=== PATIENT | female | born 1950 | race Caucasian/White ===

== ENCOUNTER → 2019-05-24 13:33 | Outpatient (CLI) | payer MEDICARE, MEDICAID, SELFPAY ==
[2019-05-11 14:29] VITALS: BMI 41.0
--- NOTE | 2019-05-24 13:36 | ECHOCS_ITS ---
Reason For Study: Dyspnea/SOB Procedure This was a 2D Doppler, Color Flow transthoracic echocardiogram. The study was technically difficult. Contrast injection was performed. Exam performed in department. Left Ventricle Normal LV size. Left ventricular systolic function is normal. The estimated ejection fraction is 65 %. Stage 1 diastolic dysfunction. No regional wall motion abnormalities noted. Right Ventricle Normal RV size. Normal systolic function. Atria Normal left atrium. Normal right atrium. Intact atrial septum. Mitral Valve Mitral valve not well visualized. Tricuspid Valve The tricuspid valve is not well visualized. Aortic Valve Trisinus/trileaflet aortic valve. Mild focal aortic valve calcification. Pulmonic Valve The pulmonic valve is not well visualized. Great Vessels Normal aortic root. The pulmonary artery is normal size. Normal inferior vena cava. Pericardium/Pleural No pericardial effusion. Medication 22 gauge I.V. with prn adaptor inserted into right arm. Diluted definity 2ml given slow IV push to enhance endocardial definition. Performed a rapid injection of agitated mix of 9 cc saline and 1cc air to assess for atrial septal defect. MMode/2D Measurements & Calculations LVIDd: 3.8 cm IVSd: 1.1 cm LVOT diam: 2.0 cm LVIDs: 2.3 cm LVPWd: 1.2 cm FS: 40.3 % LVOT area: 3.3 cm2 Ao root diam: 3.1 cm LAV(MOD-sp4): 56.1 ml LA A4 area: 19.5 cm2 LA dimension: 4.2 cm RA A4 area: 9.8 cm2 Time Measurements MV dec time: 0.20 sec Doppler Measurements & Calculations MV E max tanner: 80.8 cm/sec Lat Peak E' Tanner: 10.6 cm/sec Med Peak E' Tanner: 4.6 cm/sec MV A max tanner: 116.6 cm/sec E/E' lat: 7.6 E/E' med: 17.6 MV E/A: 0.69 MV V2 max: 121.5 cm/sec MV P1/2t max tanner: 87.6 cm/sec Ao V2 max: 258.3 cm/sec MV max P.9 mmHg MV P1/2t: 81.4 msec Ao max P.8 mmHg MV V2 mean: 57.7 cm/sec MV dec slope: 315.0 cm/sec2 Ao V2 mean: 149.2 cm/sec MV mean P.6 mmHg MVA(P1/2t): 2.7 cm2 Ao mean P.3 mmHg MV V2 VTI: 35.3 cm Ao V2 VTI: 47.6 cm MVA(VTI): 2.6 cm2 TANYA(I,D): 1.9 cm2 TANYA(V,D): 1.7 cm2 LV V1 max: 135.4 cm/sec SV(LVOT): 90.5 ml PA V2 max: 129.0 cm/sec LV V1 max P.3 mmHg LV V1 mean P.0 mmHg LV V1 mean: 78.8 cm/sec LV V1 VTI: 27.6 cm TR max tanner: 290.1 cm/sec TR max P.7 mmHg Interpretation Summary Normal LV size. Left ventricular systolic function is normal. The estimated ejection fraction is 65 %. Stage 1 diastolic dysfunction. Contrast injection was performed. Ordering Physician: Leon Roman Referring Physician: Leon Roman Performed By: Jose Butler RCS
== END ==
PROVIDERS: Referring Provider Internal Medicine Cardiovascular Disease; Visit Provider Internal Medicine Cardiovascular Disease
DX: R06.09 Other forms of dyspnea (principal); R06.02 Shortness of breath
CPT/HCPCS: 93306; Q9957; A4216; C8929

== ENCOUNTER 2019-06-07 06:39 | Outpatient (RCR) | payer MEDICARE, MEDICAID, SELFPAY ==
[2019-05-11 14:29] VITALS: BMI 41.0
--- NOTE | 2019-06-07 10:11 | PR.ITP_ITS ---
General Information - General Information Admitting Diagnosis: ASTHMA W/COPD Gold Classification:: GOLD 2: Moderate - PFT FEV1:: 1.16 - 63% FVC:: 1.67 - 71% FEV1/FVC%:: 70 - Education/Goals Barriers to Learning: Vision Impairment Individual Counseling: Initial Assessment: Dyspnea control techniques at rest, activity, and ADLs, Inhaled and respiratory medications, Exacerbation prevention & management, ADL management and pacing, Nutrition & weight management, Smoking cessation, Home exercise plan & guidelines, Advanced directives Patient Goals: Breathe better: Initial Assessment, Increase endurance/stamina: Initial Assessment, Control panic/anxiety: Initial Assessment, Improve weight: Initial Assessment Exercise - Initial Assessment - Visit Date of Eval: 06/07/19 - Problem/Goals Problems: Deconditioning - Physician Prescribed Exercise Modalities: Treadmill, NuStep, SciFit Frequency (days/week): 3 Duration (Minutes):: 30-45 Intensity: 60-80% of age predicted maximum heart rate reserve METs - Progression: 0.5-1.0 MET, RPE 11-14 WEEK: 3.0 Target Heart Rate:: 84-110 - Plan Plan and Plan to Review:: Benefits of exercise, Core components of exercise, How to measure dyspnea level, How to monitor dyspnea level, Exercise intensity, Exercise safety guideline, Home exercise guidelines, Tera: 3-4/-13 Disease Management - Initial - Problems/Goals-Hypoxemia Hypoxemia Problems:: No home O2 Hypoxemia Goals:: Hypoxemia managed - Problems/Goals-Medications Medication Goals: Adherence to prescribed medications, Correct technique/timing & care of MDI, DPI, nebulizer, and spacer. - Problems/Goals-Bronchial Hygiene Bronchial Hygiene Problems:: Ineffective secretion clearance, Respiratory infection Prevention/Management Bronchial Hygiene Goals:: Pt demonstrates effective cough, effective secretion clearance., Pt describes signs and symptoms of infection. - Initial Assessment SpO2:: 95 FiO2:: 21 Does pt report taking home meds as prescribed?: Yes Medications: Yes MDI, No Spacer Patient Reports:: No cough - Plans Hypoxemia Plan:: Monitor SpO2 rest & with exercise, Train appropriate O2 use with exercise, Train O2 safety & systems Reviewed prescribed medications:: Purpose, Schedule, Side effects, Importance of compliance Instruct correct technique/timing & care:: MDI, DPI, Nebulizer, Return demo use of inhaler Bronchial Hygiene Plan: Controlled cough, Vibratory PEP device, Hydration, Hand hygiene, When to call MD, Signs/symptoms to report:, Influenza/Pneumovax vaccines Psychosocial - Initial Assess - Problems/Goals Problems: Depression - PTSD and PANIC DISORDER [facility], Panic, Impaired Q.O.L. Psychosocial Goals: Improved psychosocial coping skills., Verbalizes coping strategies., Adequate treatment of depression., Improved Q.O.L. - Psychosocial Test Depression:: Impaired QOL Tests Completed: SF - 36 survey completed, Mood Scale Test Referred to MD for counseling:: Yes - Plan Reviewed screening results: No Instructions given regarding:: Benefits of exercise, Relaxation techniques, Training in coping strategies Stress management: On meds currently, Receiving counseling Tobacco - Initial Assessment - Program Goals Tobacco Program Goals: Complete smoking cessation. Attend education classes. Improve Knowledge Test score - Stage of Change Stages of Change:: Action - Learning Barriers Learning Barriers: Vision, Ready to Learn - Family Support Do you have family support?: Yes - Tobacco Use Tobacco Use: Cigarettes - RECENTLY QUIT 06/29/2018 40 PACK YR HX. How long ago did you quit using tobacco products?: Greater than or equal to 6 months ago How many cigarettes do you smoke per day?: 0 Years Smokin Do you use smokeless tobacco?: No - Intervention Smoking Cessation Referral:: Yes - SUPPORT FOR ABSTAINING ANC CONTINUED SMOKING CESSATION Individual Education/Counseling:: No Education Schedule Given:: No - Education Gave Education Materials For:: Pulmonary Disease, Risk Factors, Breathing Techniques, Medical Compliance, Pulmonary A&P, Exacerbation Signs & Symptoms, Stress & Relaxation Nutrition/Wt Mgmt - Initial - Problems/Goals Problems: Overweight Goals: Wt Loss 1-2 lbs per week - Weight Management Knowledge Deficit Management of:: Overweight Admit Height:: 4 ft 11 in Admit Weight:: 203 lb Admit BMI:: 41.0 - Diabetes Diabetes:: No Insulin: No Do you monitor your blood sugar at home?: No - Intervention Referral to dietitian:: Yes - WHY WEIGHT and MEDICAL NUTRITION THERAPY Referral to Diabetic Clinic:: No Will attend diet classes:: Yes - Plan Nutrition Plan: Yes Review BMI or WC & identify target wt & strategies for wt control, Yes Nutrition education class:, Yes Weight control education class:, Yes Education re: Need for ongoing weight monitoring Patient Health Questionnaire Initial Assessment 1. Little interest or pleasure in doing things: Several days 2. Feeling down, depressed, or hopeless: Several days 3. Trouble falling or staying asleep, or sleeping too much: More than half the days 4. Feeling tired or having little energy: More than half the days 5. Poor appetite or overeating: Not at all 6. Feeling bad about yourself -- or that you are a failure or have let yourself or your family down: Several days 7. Trouble concentrating on things, such as reading the newspaper or watching television: Not at all 8. Moving or speaking so slowly that other people could have noticed. Or the opposite - being so fidgety or restless that you have been moving around a lot more than usual: More than half the days 9. Thoughts that you would be better off , or of hurting yourself in some way: Not at all Total Score: 9 COPD Knowledge Test Initial COPD is a lung disease that:: Makes it hard to breathe & gets worse over time In the [place] the term COPD describes 2 main lung conditions:: Emphysema & chronic bronchitis The most common lung irritant that causes COPD is:: Cigarette smoke Common signs and symptoms of COPD include:: An ongoing cough/cough that produces a large amount of mucus, & SOB If you have COPD, what steps can you take?: Quit smoking & avoid secondhand smoke Swelling of the ankles is common in COPD:: False Fatigue [tiredness] is common in COPD:: True Wheezing is common in COPD:: True Crushing chest pain is common in COPD:: False Rapid weight loss is common in COPD:: False Breathlessness is a normal response to exercise: True Exercise should be avoided if it makes you short of breath: True All bronchodilators act within 10 minutes: True A spacer device increases the medication to the lungs: True Annual flu vaccine is recommended for pts w/lung disease: True COPD Knowledge Test Total Score:: 12 COPD Assessment Test [CAT] - Questions Never cough = 0, Cough all the time = 5: 2 No phlegm = 0, Chest full of phlegm = 5: 2 No chest tightness = 0, Chest very tight = 5: 2 No breathless w/exertion = 0, Very breathless w/exertion = 5: 4 No limitations w/activity = 0, Very limited w/activity = 5: 1 Confident leaving home = 0, Not at all confident = 5: 0 Sleep soundly = 0, Don't sleep soundly = 5: 4 Lots of energy = 0, No energy at all = 5: 5 Total CAT score:: 20 Self-Efficacy Initial Assessment We would like to know how confident you are in doing certain activities. Please select your confidence level for:: Select your confidence level for the following using the scale 1-10 where 1 is not at all confident and 10 is totally confident. Your score is the average of all 6 responses. Fatigue: How confident are you that you can keep the fatigue caused by your disease from interfering with the things you want to do? Select Number: 2 Physical Discomfort or Pain: How confident are you that you can keep the physical discomfort or pain of your disease from interfering with the things you want to do? Select Number: 2 Emotional Distress: How confident are you that you can keep the emotional distress caused by your disease from interfering with the things you want to do? Select Number: 2 Other Symptoms or Health Problems: How confident are you that you can keep other symptoms or health problems from interfering with the things you want to do? Select Number: 1 Different Tasks and Activities: How confident are you that you can do the d ifferent tasks and activities needed to manage your health condition so as to reduce your need to see a doctor? Select Number: 2 Medication: How confident are you that you can do things other than just taking medication to reduce how much your illness affects your everyday life? Select Number: 2 Total Score:: 1 Nutrition Survey - Nutrition Survey Instructions Scoring Instructions: Scoring is as follows: Yes = 1 points. No = 0 point. Patient score that is >/=12 is considered to be at potential nutritional risk and could benefit from a referral to a registered dietitian. - Nutrition Survey Initial Have you lost >10 lbs over the past 2 months without trying?: No Are you following a special diet at home for diabetes, low fat, or low salt?: No Are you interested in meeting with a dietitian for help understanding your diet?: Yes Do you eat less than 3 meals a day?: Yes Do you eat fatty meats (, sausage, ribs, etc), fried foods, desserts, large amounts of salad dressings, margarine, butter, or cheese most days?: No Do you have food allergies? [Enter types in comment field]: No Do you eat in restaurants more than 3 times a week?: No Do you season food with salt, seasoning salt, or garlic salt?: No Do you used canned, boxed, frozen meals, or soups, seasoning packets?: Yes Total Score:: 3
--- NOTE | 2019-06-07 10:11 | PCM.PR.HP ---
History of Present Illness Arrival date:: 06/07/19 Arrival time:: 10:11 Date of Referral:: 05/23/19 Date of Evaluation: 06/07/19 Referring Physician: DR. FIFI BOBBY Primary Diagnosis: ASTHMA w/COPD History of Present Illness: Pt is a very pleasent 69 yr old female of Dr. Bobby who is presenting to pulmonary rehab for her recent breathing problems. Due to her shortness of breath and asthma she has decreased functional ability, decreased ADLs, and experienced decrease in exercise tolerance. mMRC Breathless Scale: When is the patient short of breath? Y/N Grade: Description of Breathlessness: 0 I only get breathless with strenuous exercise. 1 I get short of breath when hurrying on level ground or walking up a slight hill. 2 On level ground, I walk slower than people of the same age because of breathless, or have to stop for breath when walking at my own pace. 3 I stop for breath after walking 100 yards or after a few minutes on level ground. 4 I am too breathless to leave the house or I am breathless when dressing. Respiratory Problems: Yes: Wheezing, Able to Speak in Full Sentences, Panic, Dyspnea at Rest, Dyspnea with Activity, Cough with Secretions Home Medications: Home Medications Citalopram Hydrobromide [Citalopram HBr] 40 mg PO DAILY 05/30/13 Metoprolol Tartrate 50 mg PO BID 05/30/13 Nitroglycerin (INPATIENT USE) [Nitrostat] 0.4 mg SUBLINGUAL Q5M PRN 05/30/13 Trazodone HCl [Oleptro ER] 150 mg PO DAILY 05/30/13 alendronate 70 mg tablet 70 mg PO QWEEK 05/10/19 amlodipine 10 mg tablet 10 mg PO DAILY 05/10/19 aspirin 81 mg tablet,delayed release 81 mg PO DAILY 05/10/19 cetirizine 10 mg capsule PO 05/10/19 cyanocobalamin (vitamin B-12) 1,000 mcg/mL injection solution 100 mcg IM QMONTH 05/10/19 escitalopram oxalate 10 mg tablet 10 mg PO DAILY 05/10/19 fluticasone propionate 50 mcg/actuation nasal spray,suspension 1 spray INTRANASAL DAILY 05/10/19 hydralazine 50 mg tablet 50 mg PO QHS tab 05/10/19 levothyroxine 88 mcg capsule 88 mcg PO DAILY 05/10/19 montelukast 10 mg tablet 10 mg PO QHS 05/10/19 tiotropium 2.5 mcg-olodaterol 2.5 mcg/actuation mist for inhalation 2 puff INHALATION DAILY 05/10/19 Allergies/Adverse Reactions: Allergies codeine Adverse Reaction (Verified 05/11/19 12:28) Upset Stomach lisinopril Adverse Reaction (Verified 05/11/19 12:28) Unknown mirtazapine [From Remeron] Adverse Reaction (Verified 05/11/19 12:28) Rash - Secretions Normal Color:: VERY LITTLE COMES UP Cough:: No A.T.C.: Yes Hx of Sleep Apnea: Yes Do you snore loudly (louder than talking or can be heard through closed doors)?: Yes - HAD SLEEP STUDY DONE WAS NEGATIVE. JUST RECENTLY HAD NOCTURNAL PULSE OX DONE BY DR. BOBBY. Do you often feel tired/ fatigued/ sleepy during daytime?: Yes Has anyone observed you stop breathing during sleep?: No History of Hypertension (for STOP score): Yes STOP Results: Positive Medical Utilization Do you use a peak flow meter at home?: No Do you use a spacer device with your inhalers?: No Number of hospital visits in the last year?: 1 - 06/18/2018 CABG Number of emergency room visits in the last year?: 1 - CABG Do you see your physician on a regular schedule?: Yes How often?: MONTHLY TRAVEL RN OR AT [facility], [address] Comments:: DR. DOHERTY SEE ANNUALLY UNLESS HAVE ISSUSES BEFORE THAT. Advanced Directives - Advanced Directives Power of [employer]ogn[employer] Architect: Yes - SON IS HEALTHCARE TANIA BAILEY Living Will: No Advance Directives Information Provided: Yes Advance Directives on File: No DNR Order?:: No - MOLST See MOLST form: No Past Medical History Medical History: Past Medical History (Last Updated 06/07/19 @ 10:34 by Elijah Perez, MACHINERY RIGGER, TUBE CARRIER, BS) Atherosclerosis of coronary artery of [place] heart without angina pectoris (Chronic) I25.10 Essential (primary) hypertension (Chronic) I10 Hyperlipidemia (Chronic) E78.5 Chronic depressive disorder F32.9 Chronic post-traumatic stress disorder (PTSD) F43.12 Panic anxiety syndrome F41.0 COPD (chronic obstructive pulmonary disease) J44.9 Surgical History: Past Surgical History (Last Updated 05/11/19 @ 14:34 by Asha Farley) H/O coronary artery bypass surgery (Resolved) Onset Date: 06/18/18 Z95.1 CABG x 3 GALLOWAY-LAD, SVG-D1, SVG-RPDA 06/18/2018 H/O arthroscopic knee surgery Z98.890 History of cholecystectomy Z90.49 History of herniorrhaphy Z98.890, Z87.19 History of hysterectomy Z90.710 Family History: Family History (Last Updated 05/11/19 @ 14:35 by Asha Farley) Father Myocardial infarction Heart disease Mother Heart disease - Current/ Previous Services Pulmonary Rehab:: No Social History - Smoking History Smoking Status: Former smoker Years Smokin Packs Smoked per Day: 1 Hx Smoking Cessation Date: 06/18/18 Hx Tobacco Use: Yes Hx Smoking Exposure: No - Alcohol Use Alcohol Usage: No - Substance Abuse Hx Substance Use: No - Occupation Occupation (List type of work in comments):: Retired - Hobbies, Recreation, Social Activities Hobbies: Other - CROSSSTICH, VICENTE, SEARCH WORDS, WALK ABLE TO AT CENTER Recreational Activities: I am able to engage in a few activities - GET VERY WINDED AND HAVE TO GO SIT DOWN Functioning ADL/IADL - Current Ability Current Ability: Independent Ambulation - but uses a rollator walker device, Independent Transfer, Needs some help Self-Care (e.g.,grooming, dressing, & bathing) - OBSERVE WHEN BATHING, CAN DRESS SELF, Needs some help Household tasks (e.g., light meal prep, laundry, shopping) - AID DOES CLEANING AT [facility] - Pt Functioning Prior to Problem Prior Functioning: Self-Care (e.g.,grooming, dressing, & bathing): Independent, Ambulation: Independent, Transfer: Independent, Household tasks (e.g., light meal prep, laundry, shopping): Independent Social Environment - Status Marital Status: - Current Living Arrangements Living Environment:: Assisted Living - Children Do any of your children live nearby?: No - Safety Do you feel safe in your surroundings?: No - Assistance Do you need any assistance at home?: recently moved in to an assisted living center. Review of Systems Review of Systems: Right click = Denies ([place]). Left click = Reports ([place]) Respiratory: Reports: Appetite, Normal, Sleep, Normal. Denies: Cough, SOB at Rest, Sputum production Is Patient Pain Free?: Yes Pain Location: none Pain Level: 0/10 Risk Factor Assessment - Chief Complaint Chief Complaint: Asthma w/COPD, recent CABG 06/2018 - Vital Signs Temperature: 98.6 F Pulse Rhythm: Regular Respiratory Rate: 18 Pulse Ox: 95 Blood Pressure: 116/72 Nailbeds:: pink - Diabetes Nutrition Referral for Diabetes: No - Obesity Height: 4 ft 11 in Weight:: 203 lb Weight in Pounds: 203.0 lbs Weight Source: Standing Scale Body Mass Index (BMI): 41.0 Desired Body Weight: 179 Realistic Weight Goal (Loss of 1-2 lbs/week): 191 Nutritional Referral for Obesity: Yes - Why Weight and Medical Nutrition Therapy - Physical Activity Physical Inactivity: None - Risk Stratification Risk Guidelines: Lowest Risk: Risk Factor for Dyslipidemia, Risk Factor for Diabetes, Risk Factor for Hypertension - controlled, Risk Factor for Depression, Moderate Risk: Risk Factor for Smoking - recently quit smoking <6 months, Highest Risk: Risk Factor for Obesity, Risk Factor for Sedentary Lifestyle - For Smoking Smoking Risk Guidelines: Smoking Low Risk: None or quit greater than 6 months ago. Smoking Moderate Risk: Smoker or quit 6 months or less ago. Smoking High Risk: Smoker - For Dyslipidemia Dyslipidemia Risk Guidelines: Low Risk: Moderate Risk: High Risk: 15-25% fat 25.1-29% fat >/= 30% fat. <7% sat fat 7-9% sat fat >9% sat fat. <150 mg chol 150-299 mg chol >/= 300 mg chol. LDL <100 LDL 100-129 LDL >/= 130. Chol/HDL ratio <5.0 Chol/HDL ratio 5.0-6.0 Chol/HDL ratio >6.0. Triglycerides <100 Triglycerides 100-149 Triglycerides >/= 150 - For Diabetes Mellitus Diabetes Risk Guidelines: Diabetes Low Risk: HgA1c <6.5% and/or FBG <120. Diabetes Moderate Risk: HgA1c 6.6-7.9% and/or FBG 120-180. Diabetes High Risk: HgA1c >/= 8% and/or FBG >180 - For Obesity/Overweight Obesity/Overweight Risk Guidelines: Obesity Low Risk: BMI <25.0. Obesity Moderate Risk: BMI 25-29.9. Obesity High Risk: BMI >/= 30.0 - For Hypertension Hypertension Risk Guidelines: Hypertension Low Risk: Systolic <120 and Diastolic <80. Hypertension Moderate Risk: Systolic 120-139 and Diastolic 80-89. Hypertension High Risk: Systolic >/= 140 and Diastolic >/= 90 - For Sedentary Lifestyle Sedentary Lifestyle Risk Guidelines: Sedentary Lifestyle Low Risk: >/= 1,500 kcal/week. Sedentary Lifestyle Moderate Risk: 700-1,499 kcal/week. Sedentary Lifestyle High Risk: < 700 kcal/week - For Depression Depression Risk Guidelines: Depression Low Risk: Not clinically depressed. Depression Moderate Risk: Mildly depressed. Depression High Risk: Clinically depressed Motivation - Motivation to Participate On a scale of 1 to 10, how prepared are you to commit to attending program?: 10 What do you see as barriers to successfully being able to complete the program?: TIME OF THE DAY What do you see as the benefits of succesfully completing the program? In other words, what do you hope to get out of participating in the program?: BREATH BETTER BE STRONGER Are there issues you are dealing with that will interfere with completing the program?: VERY SHORT OF BREATH, NOT ABLE TO FUNCTION Do you have a spouse or signficant other, family or friends who will help support you to complete the program?: SON IN [place] Diagnostic Data Review - Pulmonary Function Test FEV1:: 1.16 - 63% FVC:: 1.67 - 71% FEV1/FVC%:: 70
[2019-06-07 10:39] VITALS: O2SAT 95; BMI 41.0
[2019-06-07 10:52] VITALS: BP 116/72; RESP 18; TEMP 37; O2SAT 95; BMI 41.0
== END 2019-06-11 23:59 ==
LOC: PR 06:39
DX: J44.9 Chronic obstructive pulmonary disease, unspecified (principal)
CPT/HCPCS: 97150; G0239

== ENCOUNTER 2019-06-15 10:15 | Outpatient (RCR) | payer MEDICARE, MEDICAID, SELFPAY ==
--- NOTE | 2019-07-01 10:21 | PCM.PR.TP ---
General Information - General Information Admitting Diagnosis: Asthma w/COPD Exercise - 30-Day Assessment - Physician Prescribed Exercise Modalities: Treadmill, NuStep, SciFit Frequency (days/week): 0 - Patient has chosen to suspend her participation in pulmonary rehab due to the COVID-19 virus. Being she is a resident in an Assisted Living Center, she is also classified as a high risk.
== END 2019-07-12 23:59 ==
LOC: PR 10:15
DX: J44.1 Chronic obstructive pulmonary disease with (acute) exacerbation (principal); J45.901 Unspecified asthma with (acute) exacerbation
CPT/HCPCS: 97150; G0239

== ENCOUNTER 2019-07-01 11:27 | Emergency (ER) | payer MEDICARE, MEDICAID, SELFPAY ==
[2019-07-01 11:28] VITALS: BP 162/65; PULSE 62; RESP 17; TEMP 36.6; O2SAT 95; BMI 42.1
--- NOTE | 2019-07-01 11:29 | CT_ITS ---
STUDY: CT BRAIN WITHOUT CONTRAST REASON FOR EXAM: Female, 69 years old. FALL HITTING BACK OF HEAD RADIATION DOSAGE (If Supplied By Facility): CTDIvol = ( 44.99 ) mGy, DLP = ( 779.24 ) mGycm TECHNIQUE: Transaxial CT imaging of the brain was performed without administration of intravenous contrast material. Individualized dose optimization techniques were used for this CT. COMPARISON: Comparison is made with prior study dated March 04, 2000. FINDINGS: Normal soft tissue structures. Normal calvarium. There is mild cerebral atrophy with widening of the extra-axial spaces and ventricular dilatation. There are areas of decreased attenuation within the white matter tracts of the supratentorial brain, consistent with microvascular disease changes. Old lacunar infarct in the right basal ganglia. Normal brainstem. Normal cerebellum. There is no intracranial hemorrhage. There are no findings of an acute ischemic infarction. Atherosclerotic calcification of the cavernous portions of the internal carotid arteries bilaterally. Partial opacification of the right maxillary sinus as well as the right ethmoid sinus. CT/Brain/Head without Contrast IMPRESSION: Chronic involutional changes of the brain. Sinusitis. Electronically Signed: Russell Palmer, at 12:17 EDT , Service support ,
--- NOTE | 2019-07-01 11:29 | CT_ITS ---
STUDY: CT CERVICAL SPINE WITHOUT CONTRAST REASON FOR EXAM: Female, 69 years old. FALL HITTING BACK OF HEAD RADIATION DOSAGE (If Supplied By Facility): CTDIvol = ( 24.11 ) mGy, DLP = ( 495.14 ) mGycm TECHNIQUE: High resolution transaxial imaging was performed without contrast material. Sagittal and coronal images were reconstructed. Individualized dose optimization techniques were used for this CT. COMPARISON: None FINDINGS: Normal craniovertebral junction. There are degenerative changes of the anterior atlantoaxial articulation. Normal odontoid process. Normal cervical lordosis. Normal vertebral bodies and posterior osseous elements. C2-3: Normal endplates. Normal disc height and morphology. Normal central canal and intervertebral neuroforamina. C3-4: Mild degree of disc space narrowing. Uncovertebral arthrosis. Mild bilateral neural foraminal stenosis. C4-5: Mild degree of disc space narrowing. Facet joint osteoarthritis and uncovertebral arthrosis. Mild degree of bilateral neural foraminal stenosis. C5-6: Moderate degree of disc space narrowing. Facet joint osteoarthritis worse on the left side. Uncovertebral arthrosis. Moderate degree of the neural foraminal stenosis on the left side and marked degree of neural foraminal stenosis on the right side. C6-7: Mild degree of disc space narrowing. Facet joint osteoarthritis and hypertrophy. Uncovertebral arthrosis. C7-T1: Normal endplates. Normal disc height and morphology. Normal central canal and intervertebral neuroforamina. Normal visualized soft tissue structures. CT/Spine Cervical without Contras IMPRESSION: Multilevel degenerative changes, as described above. Electronically Signed: Russell Palmer, at 12:21 EDT , Service support ,
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
[2019-07-01 12:59] VITALS: BP 148/74; PULSE 75; RESP 18; O2SAT 97
== END 2019-07-01 13:55 | disposition home or self-care (01) ==
PROVIDERS: Emergency Provider Emergency Medicine; PCP Nurse Practitioner Adult Health
DX: S06.0X0A Concussion without loss of consciousness, initial encounter (principal); T22.00XA Burn of unspecified degree of shoulder and upper limb, except wrist and hand, unspecified site, initial encounter; W19.XXXA Unspecified fall, initial encounter; J32.9 Chronic sinusitis, unspecified; Z87.891 Personal history of nicotine dependence; Z88.5 Allergy status to narcotic agent
CPT/HCPCS: 70450; 72125; 99284

== ENCOUNTER 2019-08-15 13:47 | Outpatient (RCR) | payer MEDICARE, MEDICAID, SELFPAY ==
--- NOTE | 2019-07-15 07:15 | PR.ITP_ITS ---
Exercise - Initial Assessment - Visit Date of Eval: 07/15/19 - With obvious neccessary interupption in the delivery of PA, the patient's program is on hold due to the coronovirus. The PA program has been closed for patient safety reasons.
--- NOTE | 2019-07-15 07:15 | PCM.PR.TP ---
Exercise - Initial Assessment - Visit Date of Eval: 07/15/19 - With obvious neccessary interupption in the delivery of GA, the patient's program is on hold due to the coronovirus. The GA program has been closed for patient safety reasons.
== END 2019-09-11 23:59 ==
LOC: PR 13:47
PROVIDERS: PCP Nurse Practitioner Adult Health
DX: J44.1 Chronic obstructive pulmonary disease with (acute) exacerbation (principal); J45.901 Unspecified asthma with (acute) exacerbation
CPT/HCPCS: 97150; G0239

== ENCOUNTER 2020-02-10 08:55 | Day surgery (SDC) | payer MEDICARE, MEDICAID, SELFPAY ==
[2020-01-18 13:13] VITALS: BMI 42.1
[2020-02-10] VITALS (7 sets, daily range): BP systolic 109–134; BP diastolic 61–67; PULSE 55–76; RESP 16–18; TEMP 36.1–36.3; O2SAT 92–95; BMI 36.9
--- NOTE | 2020-02-10 09:18 | PCM.HP.BLA ---
Problem List (1) Personal history of colonic polyps Status: Acute History and Physical Date of Admission: 02/10/20 Intake Visit Reasons: C-Scope Polyps Chief Complaint: hx colon polyps Disaster Recovery Analyst Required: No Is patient in pain?: No Allergies codeine Adverse Reaction (Verified 01/18/20 12:59) Upset Stomach lisinopril Adverse Reaction (Verified 01/18/20 12:59) Unknown mirtazapine [From Remeron] Adverse Reaction (Verified 01/18/20 12:59) Rash Medications Metoprolol Tartrate 50 mg PO BID 05/30/13 [History Confirmed 01/18/20] Nitroglycerin (INPATIENT USE) [Nitrostat] 0.4 mg SUBLINGUAL Q5M PRN 05/30/13 [History Confirmed 01/18/20] Trazodone HCl [Oleptro ER] 150 mg PO DAILY 05/30/13 [History Confirmed 01/18/20] alendronate 70 mg tablet 70 mg PO QWEEK 05/10/19 [History Confirmed 01/18/20] aspirin 81 mg tablet,delayed release 81 mg PO DAILY 05/10/19 [History Confirmed 01/18/20] cetirizine 10 mg capsule PO 05/10/19 [History Confirmed 01/18/20] cyanocobalamin (vitamin B-12) 1,000 mcg/mL injection solution 100 mcg IM QMONTH 05/10/19 [History Confirmed 01/18/20] fluticasone propionate 50 mcg/actuation nasal spray,suspension 1 spray INTRANASAL DAILY 05/10/19 [History Confirmed 01/18/20] hydralazine 50 mg tablet 50 mg PO QHS tab 05/10/19 [History Confirmed 01/18/20] montelukast 10 mg tablet 10 mg PO QHS 05/10/19 [History Confirmed 01/18/20] tiotropium 2.5 mcg-olodaterol 2.5 mcg/actuation mist for inhalation 2 puff INHALATION DAILY 05/10/19 [History Confirmed 01/18/20] albuterol sulfate 2.5 mg INHALATION Q4H PRN ml 10/28/19 [History Confirmed 01/18/20] budesonide 0.5 mg/2 mL suspension for nebulization ml INHALATION BID ml 10/28/19 [History Confirmed 01/18/20] escitalopram oxalate 10 mg tablet 20 mg PO DAILY tab 10/28/19 [History Confirmed 01/18/20] omega-3 fatty acids-fish oil 300 mg-1,000 mg capsule cap PO 10/28/19 [History Confirmed 01/18/20] rosuvastatin 20 mg tablet tab PO 10/28/19 [History Confirmed 01/18/20] topiramate 25 mg tablet tab PO 10/28/19 [History Confirmed 01/18/20] albuterol sulfate 90 mcg/actuation aerosol inhaler INHALATION 01/18/20 [History Confirmed 01/18/20] amlodipine 10 mg tablet 5 mg PO DAILY tab 01/18/20 [History Confirmed 01/18/20] capsaicin 0.025 % topical cream g TOPICAL 01/18/20 [History Confirmed 01/18/20] levothyroxine 75 mcg tablet 75 mcg PO tab 01/18/20 [History Confirmed 01/18/20] Is last menstrual period known: No Post menopausal: Yes Patient : No PFSH Medical History (Updated 01/18/20 @ 13:[address] Pal Alaniz MD) Personal history of colonic polyps (Acute) Atherosclerosis of coronary artery of [place] heart without angina pectoris (Chronic) Essential (primary) hypertension (Chronic) Hyperlipidemia (Chronic) Chronic depressive disorder (Acute) Chronic post-traumatic stress disorder (PTSD) (Acute) Panic anxiety syndrome (Acute) COPD (chronic obstructive pulmonary disease) (Chronic) Surgical History (Updated 01/18/20 @ 12:58 by Chiara Epperson) H/O coronary artery bypass surgery (Resolved 06/18/18) History of colonoscopy (Acute ~2014) History of esophagogastroduodenoscopy (EGD) (Acute ~2014) H/O arthroscopic knee surgery (Resolved) History of cholecystectomy (Resolved) History of herniorrhaphy (Resolved) History of hysterectomy (Resolved) Family History (Updated 01/18/20 @ 12:57 by Chiara Epperson) Father Myocardial infarction Heart disease Cancer lung Mother Heart disease Hypertension Sister CVA (cerebral vascular accident) Diabetes Brother Diabetes Social History (Updated 01/18/20 @ 13:[address] Pal Alaniz MD) Smoking Status: Former smoker quit date: 06/30/18 pack-years: 30 HPI HPI HPI: Aviva Alvarado is a 70-year-old female who was referred for surgical consultation for surveillance colonoscopy because of a personal history of colon polyps. She is referred by Latia Palomino, JARVIS?C and a written copy of my surgical consult recommendations will return to her. Who was referred for colonoscopy. She lives in a assisted living. She has had several previous colonoscopies. Locally the most recent one was Dr. Jose L Puente performed on July 27, 2014. A 5 mm polyp tubular adenoma was seen in the descending colon. She noted some dark stool on one occasion. But no bright red blood per rectum or melena. June 2018 she had coronary bypass surgery for acute NH. She has been cleared to proceed on with her colonoscopy. She is currently on fish oil and aspirin. Her local motel manager Dr. Leon Roman. She has COPD from chronic tobacco use. Although for a brief period of time she was off tobacco she is returned to smoking. She denies fever chills or cough or shortness of breath that is different. She does have sleep apnea. She requires 2 L/min of oxygen at night. HPI HPI HPI: AVIVA BUCHANAN, is a 70 F who presents to the office today for ROS General General: Yes weight change; no appetite, fatigue, colon cancer, breast cancer or weakness HEENT HEENT: No difficulty swallowing, eye injury, eye surgery, swollen glands or hoarseness Endo Endocrine: Yes thyroid disease; no diabetes mellitus, thyroid cancer, Hair loss, heat intolerance or cold intolerance Cardio Cardiovascular: Yes murmur, heart disease, high blood pressure and heart attack; no pacemaker, atrial fibrillation, heart stent, palpitations, shortness of breat with exertion or chest pain Psych Psychiatric: Yes depression and anxiety; no hearing voices Resp Respiratory: Yes shortness of breath, No sleep apnea, No cough, Yes COPD, Yes asthma, No emphysema, No wheezing Gastro Gastrointestinal: No abdominal pain, No nausea or vomiting, No diarrhea, Yes constipation, No blood in stool, No acid reflux, Yes hemorrhoids, No ulcers, No gallbladder problem, No black,tarry stools Jamarcus Hematologic: Yes blood thinners, No blood disorders, No bleeding, No anemia, No blood clots Neuro Neurologic: No weakness Exam Const General: cooperative, no acute distress Nutritional Appearance: obese morbidly obese Orientation: alert, awake HENND Head: normal to inspection Neck Neck: normal visual inspection Carotids: normal carotid upstroke, no bruits Resp Auscultation: clear to auscultation bilaterally Other: Increased anterior posterior diameter. Diminished respiratory excursion Cardio Heart Sounds: murmur Other: Irregular rate with ectopic beat. GI Palpation: soft, no hepatosplenomegaly Other: Obese, I am not able to determine any internal organs. Neuro Cognition: normal cognition Extrem General: no calf tenderness Other: Mild bilateral lower extremity swelling nonpitting Psych Affect: normal affect Assessment & Plan Problems 1. Personal history of colonic polyps Z86.010 Plan 70-year-old female with a personal history of colon polyps. She claims on every colonoscopy she has had polyps detected. No family history of colon cancer. She has coronary disease which is currently felt to be stable had a myocardial infarction June 2018 with bypass surgery. She has COPD and oxygen requirement at night but she continues to smoke. I discussed with her the technique, benefit, risk and alternatives of colonoscopy with possible biopsy or polypectomy as indicated. We will utilize monitored anesthesia care because of her increased risk. She has had an opportunity to ask and have questions answered. We discussed that the [facility] is reporting a low local incidence of COVID. I anticipate that this likely will be her last routine screening colonoscopy. I did caution her about her medical comorbidities increasing the complications. I appreciate the opportunity of assisting with her surgical care Copy KEVYN Brumfield and Dr. Leon Alaniz M.D., F.A.C.S. I have re-examined the patient. There are no clinical changes since date of exam. Procedure Criteria Procedure Type: Elective COVID Risk Discussion: The surgeon/proceduralist and patient have discussed in detail the risk of exposure to and/or potential harm posed by the COVID-19 virus with having a surgery/procedure at this time versus the risk of delaying the surgery/procedure. It is not possible to know either the risk of delaying the surgery or procedure or chance of getting an infection with perfect accuracy, but a joint decision was made between the patient and the surgeon/proceduralist to proceed at this time with the scheduled surgery/procedure as indicated on the consent form.
[2020-02-10] MEDS: Lactated Ringers 1,000 ML 100 ML IV (09:35)
--- NOTE | 2020-02-10 10:56 | OP.CCLET_ITS ---
02/10/2020 Sammi Palomino Re : Colonoscopy procedure for Aviva Ashley Candelario This procedure was performed on Monday, February 10, 2020. My impressions and recommendations are as follows: Impressions : - Hemorrhoids found on perianal exam. - Diverticulosis in the entire examined colon. - No specimens collected. Recommendations : - Discharge patient to home. - Resume previous diet. - Continue present medications. - Repeat colonoscopy is not recommended due to current age (66 years or older) for surveillance. My findings are described in the full procedure note, which is enclosed. If I can be of further assistance, please feel free to contact me at Doctor phone number(s): Work: . Sincerely, Pal Alaniz MD 02/10/2020 10:55:37 AM This report has been signed electronically.
--- NOTE | 2020-02-10 10:56 | OP.COLON_ITS ---
Patient Name: Aviva Martinez Procedure Date: 02/10/2020 10:21 AM Date of : 1950 Age: 70 Procedure: Colonoscopy Indications: High risk colon cancer surveillance: Personal history of colonic polyps Providers: Pal Alaniz MD Referring MD: Sammi Palomino Medicines: See the Anesthesia note for documentation of the administered medications Patient Profile: Last Colonoscopy: July 2014. Complications: No immediate complications. Procedure: Pre-Anesthesia Assessment: - Prior to the procedure, a History and Physical was performed, and patient medications and allergies were reviewed. The patient's tolerance of previous anesthesia was also reviewed. The risks and benefits of the procedure and the sedation options and risks were discussed with the patient. All questions were answered, and informed consent was obtained. Prior Anticoagulants: The patient has taken no previous anticoagulant or antiplatelet agents. ASA Grade Assessment: II - A patient with mild systemic disease. After reviewing the risks and benefits, the patient was deemed in satisfactory condition to undergo the procedure. After I obtained informed consent, the scope was passed under direct vision. Throughout the procedure, the patient's blood pressure, pulse, and oxygen saturations were monitored continuously. The Colonoscope was introduced through the anus and advanced to the cecum, identified by appendiceal orifice and ileocecal valve. The colonoscopy was performed without difficulty. The patient tolerated the procedure well. The quality of the bowel preparation was good. The ileocecal valve and the appendiceal orifice were photographed. Scope In: 10:35:02 AM Scope Withdrawal Time 0 hours 7 minutes 0 seconds Scope Out: 10:47:40 AM Total Procedure Duration Time 0 hours 12 minutes 38 seconds Findings: Hemorrhoids were found on perianal exam. Multiple diverticula were found in the entire colon. Impression: - Hemorrhoids found on perianal exam. - Diverticulosis in the entire examined colon. - No specimens collected. Recommendation: - Discharge patient to home. - Resume previous diet. - Continue present medications. - Repeat colonoscopy is not recommended due to current age (66 years or older) for surveillance. Procedure Code(s): --- Professional --- 98942, Colonoscopy, flexible; diagnostic, including collection of specimen(s) by brushing or washing, when performed (separate procedure) Diagnosis Code(s): --- Professional --- Z86.010, Personal history of colonic polyps K64.9, Unspecified hemorrhoids K57.30, Diverticulosis of large intestine without perforation or abscess without bleeding CPT copyright 2017 [employer] [place] [employer]. All rights reserved. The codes documented in this report are preliminary and upon senior linux administrator review may be revised to meet current compliance requirements. Pal Alaniz MD 02/10/2020 10:55:37 AM This report has been signed electronically. Number of Addenda: 0 Note Initiated On: 02/10/2020 10:21 AM
== END 2020-02-10 11:45 | disposition home or self-care (01) ==
LOC: EN 08:56 → AC 08:58
PROVIDERS: PCP Nurse Practitioner Adult Health; Referring Provider Nurse Practitioner Adult Health; Visit Provider Surgery
PROC: 0DJD8ZZ Inspection of Lower Intestinal Tract, Via Natural or Artificial Opening Endoscopic (ICD-10-PCS; CPT 45378; principal; 2020-02-10 09:55)
DX: K57.30 Diverticulosis of large intestine without perforation or abscess without bleeding (principal); Z86.010 Personal history of colon polyps; K64.9 Unspecified hemorrhoids; I25.10 Atherosclerotic heart disease of native coronary artery without angina pectoris; E78.5 Hyperlipidemia, unspecified; J44.9 Chronic obstructive pulmonary disease, unspecified; F32.9 Major depressive disorder, single episode, unspecified; Z95.1 Presence of aortocoronary bypass graft; Z90.49 Acquired absence of other specified parts of digestive tract; Z79.82 Long term (current) use of aspirin; Z79.899 Other long term (current) drug therapy; Z87.19 Personal history of other diseases of the digestive system; Z88.5 Allergy status to narcotic agent; I25.2 Old myocardial infarction
CPT/HCPCS: 45378; J7120; J2405

== ENCOUNTER → 2020-10-23 13:13 | Outpatient (CLI) | payer MEDICARE, MEDICAID, SELFPAY ==
[2020-10-17 08:47] VITALS: BMI 35.7
--- NOTE | 2020-10-23 13:15 | CT_ITS ---
STUDY: LOW DOSE CT LUNG CANCER SCREENING REASON FOR EXAM: Female, 70 years old. Patient smoked 1 pack per day for 45 years. COPD. Asthma. RADIATION DOSAGE (If Supplied By Facility): CTDIvol = ( 2.39 ) mGy, DLP = ( 67.89 ) mGycm TECHNIQUE: No contrast was administered. Low dose technique was utilized (average mAS-38 and kVp 120). 1.25 mm axial source images with a slice interval of 1.25-mm were reconstructed in lung windows. 2.5 mm axial source images with a slice interval of 2.5-mm were reconstructed in lung windows. 5.0 mm axial source images with a slice interval of 5.0-mm were reconstructed in soft tissue windows. Nodule measured using lung windows on PACS and/or independent workstation with automated measurement of minimum and maximum diameter. Nodule measurement reported as average diameter rounded to the nearest whole number. Growth is defined as an increase ins size of greater than 1.5 mm. COMPARISON: None. NODULES: No suspicious nodules are seen. Emphysema: Increased markings in the peripheral aspect of the left upper lobe with the area of confluence suggestive of possible scarring. Linear scarring in the right upper lobe. Endobronchial lesion: None Aorta: Atherosclerotic plaque formation. Coronary arteries: Coronary artery calcification. Calcification of the mitral valve annulus. Heart: Prior CABG. Mediastinal nodes: Small benign appearing mediastinal lymph nodes. Other chest and abdominal findings: CT/Low Dose CT Lung Screening IMPRESSION: Lung-RADS category 2 - Continue annual screening with LDCT in 12 months. IMPORTANT NOTES FOR USE: ACR Lung-RADS Version 1.1 Assessment Categories Release Date: 2018 Category: Coded 0-4 bases on nodule(s) with highest degree of suspicion. Negative screen is defined as categories 1 and 2; a positive screen is defined as categories 3 and 4. Category 3 and 4A nodules that are unchanged on interval CT should be coded as category 2, and individuals returned to screening in 12 months. Category 4X: Category 3 or 4 nodules with additional imaging findings that increase the suspicion of lung cancer, such as spiculation, GGN that doubles in size in 1 year, enlarged lymph notes, etc. Category Modifiers: S (significant finding unrelated to lung cancer) Electronically Signed: Russell Palmer MD at 15:37 EDT , Service support ,
== END ==
PROVIDERS: PCP Nurse Practitioner Adult Health; Referring Provider Internal Medicine Critical Care Medicine; Visit Provider Internal Medicine Critical Care Medicine
DX: F17.210 Nicotine dependence, cigarettes, uncomplicated (principal)
CPT/HCPCS: 71271

== ENCOUNTER → 2020-10-29 10:36 | Outpatient (CLI) | payer MEDICARE, SELFPAY ==
[2020-10-17 08:47] VITALS: BMI 35.7
--- NOTE | 2020-10-29 14:42 | PFTCOMP ---
COMPLETE PULMONARY FUNCTION TEST INTERPRETATION Brief HPI: Patient is a 70 year old female, currently under the care of myself, who presents to [facility] for complete pulmonary function tests secondary to diagnosis of COPD. Respiratory therapist reports good effort and reproducible results. Interpretation: Forced expiration spirometry shows a moderate large airways obstructive ventilatory defect with an FEV1 of 62% predicted. There is no significant bronchodilator response by strict ATS criteria. Spirograms are of good quality and plateau slowly, indicating slowly emptying areas of the lungs. The respiratory flow volume loop shows decreased expiratory flow rates at all lung volumes consistent with airway obstruction. Lung volumes by body plethysmography show a normal total lung capacity at 3.5 L, 92% predicted. FRC and RV are elevated out of proportion. Lung volume measurements are consistent with air-trapping. Diffusion capacity by carbon monoxide is decreased at 54% predicted. The airway resistance is elevated. No previous pulmonary function tests were available for review. Impression: Irreversible moderate large airways obstructive ventilatory defect with a symmetric reduction diffusing capacity
== END ==
PROVIDERS: PCP Nurse Practitioner Adult Health; Referring Provider Internal Medicine Critical Care Medicine; Visit Provider Internal Medicine Critical Care Medicine
DX: J44.9 Chronic obstructive pulmonary disease, unspecified (principal)
CPT/HCPCS: 94060; 94726; 94729